=== PATIENT | female | born 1980 | race Caucasian/White ===

== ENCOUNTER 2018-06-27 13:34 | Emergency (ER) | payer SELFPAY ==
--- NOTE | 2018-06-27 18:25 | RAD REPORT ---
EXAM DESCRIPTION: CT - Head Brain Wo Cont - 06/27/2018 6:18 pm CLINICAL HISTORY: DIZZINESS Headache, drowsiness. COMPARISON: HEAD BRAIN W O CONTRAST dated 01/14/2014 TECHNIQUE: All CT scans are performed using dose optimization technique as appropriate and may inclu de automated exposure control or mA/KV adjustment according to patient size. FINDINGS: No intracranial hemorrhage, hydrocephalus or extra-axial fluid collection.No areas of brai n edema or evidence of midline shift. The paranasal sinuses and mastoids are clear. The calvarium is intact. IMPRESSION: No acute intracranial abnormality.
--- NOTE | 2018-06-27 18:32 | RAD REPORT ---
EXAM DESCRIPTION: RAD - Chest Single View - 06/27/2018 6:28 pm CLINICAL HISTORY: CHEST PAIN Chest pain. COMPARISON: Chest Single View dated 10/26/2015 FINDINGS: Portable technique limits examination quality. The lungs are grossly clear. The heart is normal in size. No displaced fractures. IMPRESSION: No acute intrathoracic process suspected.
[2018-06-27 20:00] LABS: Absolute Lymphocytes (CBC) 3.1 K/uL (0.7-4.9); Absolute Monocytes 0.8 K/uL (0.1-1.3); Absolute Neutrophil 7.1 K/uL (1.8-8.0); Basophils % 0.3 % (0-1.3); Eosinophils % 1.1 % (0-4.4); Hematocrit 37.9 % (36.0-45.0); Lymphocytes % 27.7 % (15.3-44.8); MPV 9.8 fL (7.6-11.3); Monocytes % 6.9 % (3.3-12.3); RBC Red Blood Cell Count 4.16 M/uL (3.86-4.86)
[2018-06-27 20:13] LABS: ALT/SGPT 17 U/L (12-78); AST/SGOT 8 U/L (15-37); Albumin 4.2 g/dL (3.4-5.0); Alkaline Phosphatase 58 U/L (45-117); BUN Blood Urea Nitrogen 14 mg/dL (7-18); Bicarbonate 26 mmol/L (21-32); Bilirubin Direct 0.1 mg/dL (0-0.2); Bilirubin Total 0.5 mg/dL (0.2-1.0); Glucose Level 80 mg/dL (74-106); Magnesium 2.1 mg/dL (1.8-2.4); NT PRO-BNP 56 pg/mL (<125); Potassium 3.4 mmol/L (3.5-5.1); Protime INR 1.07; Sodium Level 138 mmol/L (136-145); Troponin (Emerg Dept Use Only) < 0.02 ng/mL (0.0-0.045)
[2018-06-27 20:36] LABS: Urine Blood NEGATIVE (NEG); Urine Glucose NEGATIVE (NEG); Urine Protein NEGATIVE (NEG); Urine Specific Gravity 1.025 (1.005-1.030)
[2018-06-27] MEDS ORDERED: ONDANSETRON 4 MG/2 ML VIAL ONE (21:03)
[2018-06-27] MEDS ORDERED: KETOROLAC 30 MG/ML INJ ONE (21:03)
--- NOTE | 2018-06-27 21:34 | ER ---
Nurse's Notes [facility] Name: Bonita Hernandez Age: 38 yrs Sex: Female : 1980 Arrival Date: 06/27/2018 Time: 13:37 Bed 17 Private MD: Diagnosis: Chest pain, unspecified Presentation: 06/27 15:16 Presenting complaint: Patient states: Palpitations, L rib pain, headache behind yvrose ph eyes, dizziness, and nausea, reports that symptoms began at approx 0800. Transition of care: patient was not received from another setting of care. Onset of symptoms was June 27, 2018. Risk Assessment: Do you want to hurt yourself or someone else? Patient reports no desire to harm self or others. Initial Sepsis Screen: Does the patient meet any 2 criteria? No. Patient's initial sepsis screen is negative. Care prior to arrival: None. 15:16 Method Of Arrival: Ambulatory ph 15:16 Acuity: KIRSTEN 3 ph Historical: - Allergies: 15:19 PENICILLINS; ph - PSHx: 15:19 Left Ankle; Tubal ligation; ; Cholecystectomy; ph Screenin:01 Abuse screen: Denies threats or abuse. Denies injuries from another. Nutritional aj1 screening: No deficits noted. Tuberculosis screening: No symptoms or risk factors identified. Assessment: 17:01 General: Appears in no apparent distress. uncomfortable, Behavior is calm, cooperative, aj1 appropriate for age. Pain: Complains of pain in right lateral anterior chest Pain does not radiate. Pain currently is 6 out of 10 on a pain scale. Pain: Aggravated by deep breathing and leaning forward. Neuro: Level of Consciousness is awake, alert, obeys commands, Oriented to person, place, time, situation, Moves all extremities. Full function Gait is steady, Speech is normal, Facial symmetry appears normal, Reports dizziness, headache. Cardiovascular: Heart tones S1 S2 present Patient's skin is warm and dry. Rhythm is sinus rhythm. Cardiovascular: Reports palpitations. Respiratory: Airway is patent Respiratory effort is even, unlabored, Respiratory pattern is regular, symmetrical, Breath sounds are clear bilaterally. Denies cough, shortness of breath. GI: Reports nausea. : No signs and/or symptoms were reported regarding the genitourinary system. EENT: No signs and/or symptoms were reported regarding the EENT system. Derm: No signs and/or symptoms reported regarding the dermatologic system. Skin is pink, warm \T\ dry. normal. Musculoskeletal: No signs and/or symptoms reported regarding the musculoskeletal system. Circulation, motion, and sensation intact. 18:15 Reassessment: Patient appears in no apparent distress at this time. No changes from aj1 previously documented assessment. Patient and/or family updated on plan of care and expected duration. Pain level reassessed. Patient is alert, oriented x 3, equal unlabored respirations, skin warm/dry/pink. 19:15 Reassessment: Patient appears in no apparent distress at this time. Patient and/or jb4 family updated on plan of care and expected duration. Pain level reassessed. Patient is alert, oriented x 3, equal unlabored respirations, skin warm/dry/pink. 20:15 Reassessment: Patient appears in no apparent distress at this time. Patient and/or jb4 family updated on plan of care and expected duration. Pain level reassessed. Patient is alert, oriented x 3, equal unlabored respirations, skin warm/dry/pink. 21:15 Reassessment: Patient appears in no apparent distress at this time. Patient and/or jb4 family updated on plan of care and expected duration. Pain level reassessed. Patient is alert, oriented x 3, equal unlabored respirations, skin warm/dry/pink. 21:57 Reassessment: Patient appears in no apparent distress at this time. Patient and/or jb4 family updated on plan of care and expected duration. Pain level reassessed. Patient is alert, oriented x 3, equal unlabored respirations, skin warm/dry/pink. Vital Signs: 15:18 BP 130 / 72; Pulse 72; Resp 16; Temp 98.0; Pulse Ox 100% on R/A; Height 5 ft. 6 in. ph (167.64 cm); 17:01 BP 137 / 61; Pulse 69; Resp 14; Pulse Ox 99% on R/A; aj1 18:15 BP 136 / 72; Pulse 62; Resp 18; Pulse Ox 97% on R/A; aj1 19:15 BP 140 / 78; Pulse 65; Resp 16; Pulse Ox 97% on R/A; jb4 20:15 BP 125 / 72; Pulse 65; Resp 18; Pulse Ox 96% on R/A; jb4 21:15 BP 133 / 75; Pulse 66; Resp 18; Pulse Ox 97% on R/A; jb4 21:45 BP 122 / 63; Pulse 63; Resp 16; Pulse Ox 97% on R/A; jb4 ED Course: 13:37 Patient arrived in ED. tw3 15:18 Triage completed. ph 15:19 Arm band placed on. ph 15:23 EKG done, by endoscopy technican. reviewed by Noe Marroquin MD. 3 16:52 Ashely Shelley, RN is Primary Nurse. aj1 17:01 Patient has correct armband on for positive identification. Bed in low position. Call aj1 light in reach. Side rails up X 1. monitor worker on. Pulse ox on. NIBP on. 17:01 No provider procedures requiring assistance completed. aj1 17:47 Prince Parker PA is PHCP. jmm 17:47 Noe Marroquin MD is Attending Physician. jmm 18:[address] jg6 18:17 CT completed. Patient tolerated procedure well. Patient moved back from CT. vm2 18:19 CT Head Brain wo Cont In Process Unspecified. EDMS 18:27 XRAY Chest (1 view) In Process Unspecified. EDMS 19:05 Troponin (emerg Dept Use Only) Sent. mh5 19:05 Basic Metabolic Panel Sent. mh5 19:06 CBC with Diff Sent. mh5 19:06 LFT's Sent. mh5 19:06 Magnesium Sent. mh5 19:06 NT PRO-BNP Sent. mh5 19:06 PT-INR Sent. mh5 19:06 Missed attempt(s): 22 gauge in right antecubital area. 24 gauge in right hand. mh5 19:07 Warm blanket given. monitor worker on. Pulse ox on. NIBP on. mh5 19:30 Inserted saline lock: 22 gauge in left wrist, using aseptic technique. Blood collected. jp3 21:33 Hugo Lopez MD is Referral Physician. jmm 21:33 Alex Carvajal MD is Referral Physician. jmm 21:45 IV discontinued, intact, bleeding controlled. jb4 Administered Medications: 21:10 Drug: Zofran 4 mg Route: IVP; Site: left hand; jb4 21:59 Follow up: Response: No adverse reaction; Nausea is decreased jb4 21:12 Drug: Ketorolac 30 mg Route: IVP; Site: left hand; jb4 22:00 Follow up: Response: No adverse reaction; Pain is decreased jb4 Outcome: 21:34 Discharge ordered by . jai 21:59 Discharged to home ambulatory. jb4 21:59 Condition: stable 21:59 Discharge instructions given to patient, Instructed on discharge instructions, follow up and referral plans. medication usage, Demonstrated understanding of instructions, follow-up care, medications, Prescriptions given X 2. 22:01 Patient left the ED. jb4 Signatures: Dispatcher [employer] EDMS Ashely Shelley, RN RN aj1 Prince Parker PA PA jmm Hall, Patricia, RN RN Henrry Yen RN RN jb4 Krista Dow 5 Michelle Hope3 Odessa Unger2 Janay Dominguez 3 Burt Sue jp3 Diana Epps6
--- NOTE | 2018-06-27 21:34 | EDPHYS ---
Physician Documentation [facility] Name: Bonita Hernandez Age: 38 yrs Sex: Female : 1980 Arrival Date: 06/27/2018 Time: 13:37 Bed 17 Private MD: ED Physician Noe Marroquin HPI: 06/27 17:48 This 38 yrs old Female presents to ER via Ambulatory with complaints of m Dizziness, Headache, Nausea. 17:48 The patient or guardian reports chest pain that is located primarily in the anterior [facility] chest wall, left. The pain does not radiate. Associated signs and symptoms: Pertinent positives: lightheadedness, palpitations. The chest pain is described as aching. Duration: The patient or guardian reports a single episode, that is still ongoing, and unchanged. This is a 38 year old female with no chronic medical conditions that presents to the ED with complaints of left sided chest pain beginning this morning at approx 0800. Patient states symptoms began with an episode of palpitations which has since resolved. Patient states approx 1 hour later she developed a bilateral retro orbital headache which was gradual onset which continues. Patient smokes tobacco and admits to recently smoking marijuana recreational 3 days prior. Chest pain is non exertional. patient denies shortness of breath. Patient also complains of lightheartedness and general weakness. Patient denies cough or fever. . Historical: - Allergies: 15:19 PENICILLINS; ph - PSHx: 15:19 Left Ankle; Tubal ligation; ; Cholecystectomy; ph ROS: 17:48 Constitutional: Negative for fever, chills, and weight loss. jmm 17:48 Cardiovascular: Positive for chest pain, palpitations. 17:48 Abdomen/GI: Positive for nausea. 17:48 Neuro: Positive for headache. 17:48 All other systems are negative. Exam: 17:48 Constitutional: This is a well developed, well nourished patient who is awake, alert, jmm and in no acute distress. Head/Face: atraumatic. Eyes: EOMI, no conjunctival erythema appreciated ENT: Moist Mucus Membranes Neck: Trachea midline, Supple Chest/axilla: Normal chest wall appearance and motion. 17:48 Chest/axilla: Inspection: normal, Palpation: tenderness, is not appreciated. 17:48 Cardiovascular: Rate: normal, Rhythm: regular. 17:48 Respiratory: the patient does not display signs of respiratory distress, Respirations: normal, Breath sounds: are clear throughout. 17:48 Abdomen/GI: Inspection: abdomen appears normal, Bowel sounds: normal, Palpation: abdomen is soft and non-tender. 17:48 Back: ROM is normal. 17:48 Musculoskeletal/extremity: ROM: intact in all extremities. 17:48 Skin: Appearance: Color: normal in color. 17:48 Neuro: Orientation: is normal, Mentation: is normal, Memory: is normal. 17:48 Psych: Behavior/mood is pleasant, cooperative. Vital Signs: 15:18 BP 130 / 72; Pulse 72; Resp 16; Temp 98.0; Pulse Ox 100% on R/A; Height 5 ft. 6 in. ph (167.64 cm); 17:01 BP 137 / 61; Pulse 69; Resp 14; Pulse Ox 99% on R/A; aj1 18:15 BP 136 / 72; Pulse 62; Resp 18; Pulse Ox 97% on R/A; aj1 19:15 BP 140 / 78; Pulse 65; Resp 16; Pulse Ox 97% on R/A; jb4 20:15 BP 125 / 72; Pulse 65; Resp 18; Pulse Ox 96% on R/A; jb4 21:15 BP 133 / 75; Pulse 66; Resp 18; Pulse Ox 97% on R/A; jb4 21:45 BP 122 / 63; Pulse 63; Resp 16; Pulse Ox 97% on R/A; jb4 MDM: 17:[address] [facility] 21:30 Data reviewed: vital signs, nurses notes. Counseling: I had a detailed discussion with jai the patient and/or guardian regarding: the historical points, exam findings, and any diagnostic results supporting the discharge/admit diagnosis, the need for outpatient follow up, to return to the emergency department if symptoms worsen or persist or if there are any questions or concerns that arise at home. 21:31 Data reviewed: lab test result(s), EKG, radiologic studies, plain films. Counseling: I jai had a detailed discussion with the patient and/or guardian regarding: lab results, radiology results, smoking cessation. 21:42 Data interpreted: Pulse oximetry: on room air is 97 %. Interpretation: normal. jai 21:42 Test interpretation: by ED physician or midlevel provider: ECG. Response to treatment: donavon the patient's symptoms have markedly improved after treatment, and as a result, I will discharge patient. ED course: PERC NEGATIVE. HEART SCORE = 1. Patient is advised to follow up with cardiology for further evaluation. Patient is given strict return precautions. Patient understood and agrees with the plan of care. . 06/27 18:09 Order name: Basic Metabolic Panel; Complete Time: 20:14 [facility] 06/27 18:09 Order name: CBC with Diff; Complete Time: 20:14 [facility] 06/27 18:09 Order name: LFT's; Complete Time: 20:14 [facility] 06/27 18:09 Order name: Magnesium; Complete Time: 20:14 [facility] 06/27 18:09 Order name: NT PRO-BNP; Complete Time: 20:14 [facility] 06/27 18:09 Order name: PT-INR; Complete Time: 20:39 [facility] 06/27 16:38 Order name: EKG Electrocardiogram; Complete Time: 16:53 [facility] 06/27 18:09 Order name: Troponin (emerg Dept Use Only); Complete Time: 20:14 [facility] 06/27 18:09 Order name: XRAY Chest (1 view); Complete Time: 18:35 [facility] 06/27 18:09 Order name: CT Head Brain wo Cont; Complete Time: 18:35 [facility] 06/27 19:06 Order name: Urine Dipstick--Ancillary (enter results); Complete Time: 20:39 06/27 19:06 Order name: Urine --Ancillary (enter results); Complete Time: 20:39 06/27 18:09 Order name: EKG; Complete Time: 18:10 [facility] 06/27 18:09 Order name: Cardiac monitoring; Complete Time: 18:10 [facility] 06/27 18:09 Order name: EKG - Nurse/Tech; Complete Time: 18:10 [facility] 06/27 18:09 Order name: IV Saline Lock; Complete Time: 20:00 [facility] 06/27 18:09 Order name: Labs collected and sent; Complete Time: 19:05 [facility] 06/27 18:09 Order name: O2 Per Protocol; Complete Time: 18:10 [facility] 06/27 18:09 Order name: O2 Sat Monitoring; Complete Time: 18:10 [facility] 06/27 20:40 Order name: EKG - Nurse/Tech; Complete Time: 21:24 [facility] Administered Medications: 21:10 Drug: Zofran 4 mg Route: IVP; Site: left hand; jb4 21:59 Follow up: Response: No adverse reaction; Nausea is decreased jb4 21:12 Drug: Ketorolac 30 mg Route: IVP; Site: left hand; jb4 22:00 Follow up: Response: No adverse reaction; Pain is decreased jb4 Disposition: 06/28 09:20 Co-signature as Attending Physician, Noe Marroquin MD I agree with the assessment and fina plan of care. Disposition: 06/27/18 21:34 Discharged to Home. Impression: Chest pain, unspecified. - Condition is Stable. - Discharge Instructions: Nonspecific Chest Pain. - Prescriptions for Zofran ODT 4 mg Oral tablet,disintegrating - place 1 tablet by TRANSLINGUAL route every 4-6 hours; 20 tablet. Ibuprofen 800 mg Oral Tablet - take 1 tablet by ORAL route every 8 hours As needed take with food; 30 tablet. - Work release form, Medication Reconciliation Form, Thank You Letter, Antibiotic Education, Prescription Opioid Use form. - Follow up: Hugo Lopez MD; When: 2 - 3 days; Reason: Recheck today's complaints, Continuance of care, Re-evaluation by your physician. Follow up: Alex Carvajal MD; When: 2 - 3 days; Reason: Recheck today's complaints, Continuance of care, Re-evaluation by your physician. Signatures: Dispatcher [employer] Noe Glasgow MD MD cha Mickail, Joel, PA PA jmm Hall, Patricia, RN RN Henrry Prasad RN RN jb4 Corrections: (The following items were deleted from the chart) 06/27 22:01 21:34 06/27/2018 21:34 Discharged to Home. Impression: Chest pain, unspecified. jb4 Condition is Stable. Forms are Medication Reconciliation Form, Thank You Letter, Antibiotic Education, Prescription Opioid Use. Follow up: Hugo Lopez; When: 2 - 3 days; Reason: Recheck today's complaints, Continuance of care, Re-evaluation by your physician. Follow up: Alex Carvajal; When: 2 - 3 days; Reason: Recheck today's complaints, Continuance of care, Re-evaluation by your physician. jmm
--- NOTE | 2018-06-28 05:28 | EKG ---
Test Date: 2018-06-27 Test Time: 15:18:32 Childcare Provider: NASIM MEASUREMENT RESULTS: Intervals: Rate: 73 MA: 136 QRSD: 86 QT: 394 QTc: 434 [place]: P: 67 MA: 136 QRS: 82 T: 20 INTERPRETIVE STATEMENTS: Normal sinus rhythm with sinus arrhythmia Nonspecific ST abnormality Abnormal ECG Compared to ECG 10/26/2015 12:26:00 ST (T wave) deviation now present Electronically Signed On 06-28-18 05:27:30 CDT by Alex Carvajal
--- NOTE | 2018-06-28 05:32 | EKG ---
Test Date: 2018-06-27 Test Time: 20:57:47 Archeology Faculty Member: DOLORES MEASUREMENT RESULTS: Intervals: Rate: 64 WV: 150 QRSD: 96 QT: 400 QTc: 412 [place]: P: 43 WV: 150 QRS: 51 T: 14 INTERPRETIVE STATEMENTS: Normal sinus rhythm with sinus arrhythmia Normal ECG Compared to ECG 06/27/2018 15:18:32 ST (T wave) deviation no longer present Electronically Signed On 06-28-18 05:31:19 CDT by Alex Carvajal
== END 2018-06-27 22:01 | disposition home or self-care (01) ==
LOC: ER 13:34
DX: R07.9 Chest pain, unspecified (principal); Z72.0 Tobacco use; Z88.0 Allergy status to penicillin
CPT/HCPCS: 36415; 70450; 71045; 80048; 80076; 81003; 81025; 83735; 83880; 84484; 85025; 85610; 93005; 96374; 96375; 99285; J2405

== ENCOUNTER 2024-02-24 18:31 | Emergency (ER) | payer SELFPAY ==
--- OUTSIDE RECORDS SUMMARY | 2024-02-24 18:36 | XMS REPORT | Continuity of Care Document ---
Author Name Unknown Address [address] [facility]. [address] [place] [address] [facility] thconnect Address [address] [facility] [address] [place] [address] Care Team Providers Care Fatback Trimmer Name Role Phone Pcp, Patient Does Not Have A Primary Care Physic michael José Miguel Mak Attending Clinician Hi Anne Attending Clinician Unavailable Topher Navarrete MD Attending Clinician Physician, No Primary or Family Admitting Clinic michael Unavailable Payers Payer Name Policy Type Policy Number Effective Date Expirati on Date Source Problems Condition Name Condition Details Condition Category Status Onset Date Resolution Date Last Treatment Date Treating Clinician Comments Source No known active problems No known active problems Disease [facility] Allergies, Adverse Reactions, Alerts Allergy Name Allergy Type Status Severity Reaction(s) Onset Date Inactive Date Treating Clinician Comments Source Nereida Propensi ty to adverse reaction s Active Anaphylaxis 16 00:00: 00 [facility] Penicill ins Propensi ty to adverse reaction s Active Anaphylaxis 10-29 00:00: 00 [facility] Poison Anabella Extract Propensi ty to adverse reaction s Active Anaphylaxis 10-29 00:00: 00 [facility] PENICILL INS Drug Class Active Anaphylaxis 10-29 00:00: 00 [facility] NEREIDA DRUG INGREDI Active Anaphylaxis 10-29 00:00: 00 [facility] POISON ANABELLA EXTRACT DRUG INGREDI Active Anaphylaxis 10-29 00:00: 00 [facility] NO KNOWN ALLERGIE S Drug Class Active [facility] Social History Social Habit Start Date Stop Date Quantity Comments Source Exposure to SARS-CoV-2 (event) Not sure [facility] Sex Assigned At 1980 00:00:00 1980 00:00:00 [facility] Smoking Status Start Date Stop Date Source Unknown if ever smoked [facility] Medications Ordered Medication Name Filled Medication Name Start Date Stop Date Current Medication? Ordering Clinician Indication Dosage Frequency Signature (SIG) Comments Components Source acetaminoph en-codeine 300-30 mg tablet 2020-04 00:00: 00 Yes 4647 1{tbl} Take 1 tablet by mouth every 4 (four) hours as needed for Pain (scale 4-6). Indication s: acute pain [facility] ondansetron (ZOFRAN-ODT ) disintegrat ing tablet 4 mg 10-29 20:00: 00 10-29 19:58 :00 No 4mg 4 mg, Oral, ONCE, 1 dose, Arcelia 10/30/19 at 1500, Routine [facility] HYDROcodone -acetaminop hen (NORCO 5) 5-325 mg tablet 1 tablet 10-29 20:00: 00 10-29 19:37 :00 No 1{tbl} 1 tablet, Oral, ONCE, 1 dose, Arcelia 10/30/19 at 1500, SAVAGE [facility] ibuprofen 600 mg tablet 10-29 00:00: 00 Yes [id number] 600mg Take 1 tablet by mouth every 6 (six) hours as needed for Pain (scale 4-6). [facility] methocarbam ol 750 mg tablet 10-29 00:00: 00 Yes [id number] 750mg Take 1 tablet by mouth 4 (four) times daily. [facility] acetaminoph en-codeine 300-30 mg tablet 10-29 00:00: 00 Yes 4647 1{tbl} Take 1-2 tablets by mouth every 6 (six) hours as needed for Pain (scale 4-6). Indication s: acute pain [facility] Vital Signs Vital Name Observation Time Observation Value Comments S ource Systolic blood pressure 2021-01-24 17:55:00 150 mm[Hg] [facility] Diastolic blood pressure 2021-01-24 17:55:00 78 mm[Hg] [facility] Heart rate 2021-01-24 17:55:00 80 /min [facility] Body temperature 2021-01-24 17:55:[address] [facility] Respiratory rate 2021-01-24 17:55:00 16 /min [facility] Body height 2021-01-24 17:55:00 170 cm [facility] Body weight 2021-01-24 17:55:00 105 kg [facility] BMI 2021-01-24 17:55:00 36.33 kg/m2 [facility] Oxygen saturation in Arterial blood by Pulse oximetry 2021-01-24 17:55:00 99 /min [facility] Systolic blood pressure 2019-10-30 20:00:00 135 mm[Hg] [facility] Diastolic blood pressure 2019-10-30 20:00:00 106 mm[Hg] [facility] Heart rate 2019-10-30 20:00:00 73 /min [facility] Respiratory rate 2019-10-30 20:00:00 19 /min [facility] Oxygen saturation in Arterial blood by Pulse oximetry 2019-10-30 20:00:00 98 /min [facility] Body temperature 2019-10-30 18:18:[address] [facility] Body weight 2019-10-30 18:18:00 127.007 kg [facility] Procedures Procedure Date / Time Performed Performing Clinicia n Source NOTICE OF PRIVACY PRACTICES 2021-01-24 17:46:12 Doctor Unassigned, [place] [facility] CONSENT/REFUSAL FOR DIAGNOSIS AND TREATMENT 2021-01-24 17:45:23 Doctor Unassigned, [place] [facility] URINALYSIS 2019-10-30 19:40:00 [facility] 3 VW 2019-10-30 19:16:[address] [facility] XR HIPS 2 VW RIGHT 2019-10-30 19:16:[address] [facility] POCT TEST 2019-10-30 19:06:[address] [facility] NOTICE OF PRIVACY PRACTICES 2019-10-30 17:59:35 Doctor Unassigned, [place] [facility] CONSENT/REFUSAL FOR DIAGNOSIS AND TREATMENT 2019-10-30 17:59:18 Doctor Unassigned, [place] [facility] Encounters Start Date/Time End Date/Time Encounter Type Admission Type Attending [facility] Facility Care Department Encounter ID Source 2022-07-04 14:23:42 2022-07-04 14:23:42 Outpatient [facility] [id number] Douglas Cira Sharma 2021-01-24 13:00:00 2021-01-24 14:16:00 Emergency José Miguel Jordan [facility] [id number] [facility] 2021-01-24 12:45:00 2021-01-24 12:45:00 Emergency X [facility] ERT [id number] [facility] 2021-01-23 04:15:00 2021-01-23 05:26:00 Inpatient EM Hi Anne [facility] EO2 [id number] 65 [facility] [place] 2019-10-30 13:20:08 2019-10-30 18:00:00 Emergency Topher Navarrete [facility] [id number] [facility] 2019-10-30 13:00:00 2019-10-30 13:00:00 Emergency X [facility] ERT [id number] [facility] Results Test Description Test Time Test Comments Results Resul t Comments Source - XR WRIST 3 + V LT 2021-01-23 04:47:00 [facility] 1980 Sex: F Jeffery tient Name: JAZMIN PARSONS Unit No: [id number] EXAMS: CPT: [id number] XR WRIST 3 + [place] [address] LEFT WRIST 3 VIEWS: CLINICAL HISTORY: Injury FINDINGS: There is a nondisplaced fracture of the distal radial metaphysis, which appears to extend to the articular surface. Alignment appears anatomic. No joint or soft tissue abnormalities are seen. IMPRESSION: Nondisplaced distal radial fracture. at 0447 Reported and signed by: Augusto Barboza MD CC: Hi Anne MD Technologist: Swapnil Minor Trscr Dt/Tm: 01/23/2021 (0447) by:[email or web address] Orig Print D/T: S: 01/23/2021 (0450) BATCH NO: N/A Name: JAZMIN PARSONS FSED Phys: [email or web address] - Hi Anne MD [id number] FM [id number] : 1980 Age: 40 Sex: [place] [id number] [facility] Date: 01/23/2021 Status: PRE ER PH: FAX: PAGE [address] [facility] VW [id number] 19:27:44HISTORY: ?Pain. FINDINGS: AP and lateral views of right hip showed no acute fracture ordislocation.No significant changes of arthritis or aggressive bone lesionsseen. No signs of AVN in the femoral head. CONCLUSIONS: No acute fracture or dislocation in the right hip. [facility], [facility] Results Inft User - 10/30/2019 2:28 PM CDTHISTORY: Pain.FINDINGS: AP and lateral views of right hip showed no acute fracture ordislocation. No significant changes of arthritis or aggressive bone lesionsseen. No signsof AVN in the femoral head.CONCLUSIONS: No acute fracture or dislocation in the right hip[facility] L[facility] 3 [id number] 19:21:471. ?No acute osseous findings are seen.2. ?Minimal degenerative changes of the lumbar spine.HISTORY:back pain TECHNIQUE: Frontal and lateral views of the lumbar spine were obtained. COMPARISON: None. FINDINGS: There are 5 lumbar type vertebra. There is normal lumbar lordosisand sagittal alignment. The vertebral body heights are preserved. Multilevel degenerative changes are noted in the form of disc spacenarrowing, anterior osteophytes and facet arthropathy. Minimal degenerativechanges are seenin the form of marginal osteophytes. [facility], [facility] Results [facility] User - 10/30/2019 2:22 PM CDTHISTORY:back pain TECHNIQUE: Frontal and lateral views of the lumbar spine were obtained. COMPARISON: None.FINDINGS: There are 5 lumbar type vertebra. There is normal lumbar lordosisand sagittal alignment. The vertebral body heights are preserved.Multilevel degenerative changes are noted in the form of disc spacenarrowing, anterior osteophytes and facet arthropathy. Minimal degenerativechanges are seen in the form of marginal osteophytes.IMPRESSION1. No acute osseous findings are seen.2. Minimal degenerative changes of the lumbar spine.[facility] [id number] 19:06:00* Test Item Value Reference Range Interpretation Comme nts POCT PREG (test code = 1605) negative On board controls acceptable with C Line (test code = 3574) positive POCT PREG LOT # (test code = 3575) [id number] POCT PREG TEST DATE ( test code = 3576) 11-13-2020 Lab Interpretation (test cod e = 60051-1) Normal [facility] Notes Date/Time Note Provider Source 2021-01-23 04:28:00 [facility] (COCYENI) EMERGENCY PROVIDER REPORT REPORT#:[id number] REPORT STATUS: Signed DATE:01/23/21 TIME: 427 PATIENT: JAZMIN PARSONS UNIT #: [id number] ROOM: BED: AGE: 40 SEX: F PCP PHYS: No Primary or Family Physician SERVICE AUTHOR: Hi Anne MD * ALL edits or amendments must be made on the electronic/computer document * HPI-General Illness Free Text HPI Notes Free Text HPI Notes Wrist pain Location left Duration constant severity moderate Context fell backwards onto bilateral outstretched palms 32-year-old female presents to the EMS apply splint to her left distal wrist for pain swelling and deformity after mechanical fall Positive alcohol Negative loss consciousness General Initial Greet Date/Time 01/23/21416 Presentation Chief Complaint __ (left wrist pain) Review of Systems Free Text ROS Notes Free Text ROS Notes See HPI, 10 point review of systems otherwise negative Past Medical History - Adult Stated Complaint INJURY TO LEFT WRIST Physical Exam Vital Signs Vital Signs First Documented: Result Date Time Pulse Ox 95 01/23 042 B/P 145/74 01/23 0420 B/P Mean 97.7 01/24 420 Temp 97.5 01/24 420 Pulse 111 01/24 420 Resp 16 01/230 O2 Delivery Room air 01/23 514 Last Documented: Result Date Time Pulse Ox 96 01/23 514 B/P 138/77 01/23 514 B/P Mean 97 01/23 514 O2 Delivery Room air 01/23 514 Temp 98.3 01/23 514 Pulse 91 01/23 514 Resp 15 01/23 514 Review of Vital Signs Reviewed Free Text PE Notes Free Text PE Notes CONSTITUTIONAL: Well developed, well nourished. No acute distress. HEAD: Scalp is atraumatic. Normocephalic. EYES: PERRL. EOMI. injected conjunctivae bilaterally ENT: Moist mucus membranes. NECK: Full ROM. No Stridor. RESPIRATORY/CHEST: No respiratory distress. No tachypnea. EXTREMITIES: No C/C/E. Soft lump at the dorsal left wrist. Patient is jumpy but I was allowed to palpate along the entire aspect of the radius and ulna as well as long bones of the finger. No pain with axial loading of the thumb. FROM in all extremities. No calf tenderness. SKIN: Warm, dry intact. No petechiae, purpura, rashes. NEURO: AAO x 3 and situation. Normal speech. PSYCH: Limited eye contact. Labile emotions. Interpretation Diagnostics Lab Results Interpretation Results Recent Impressions: RADIOLOGY - XR WRIST 3 + V LT 01/23 442 Report Impression - Status: SIGNED Entered: 01/23/2021449 IMPRESSION: Nondisplaced distal radial fracture. Impression By: [email or web address] - Augusto Barboza MD Procedures Splint Applic - Fx Mgmt #1 Start Time 0430 Time Spent (minutes) 20 Procedure Performed by ED physician Precise Anatomic Location Left sugar tong Due to not Ortho-Glass greater than 3 feet use 2 rolls of 3 inch wide weight will use on the wrist and epicondyle/olecranon. 2 Shaheed wrap to use Custom Immobilization Ortho glass Definitive Fracture Care Pain control, Sling, Splint, Follow up > 4 days Re-Evaluation MDM ED Course Medication(s) Ordered Medication(s) Ordered: Central Nervous System Agents Sig/Lisa Start time Last Medication Dose Route Stop Time Status Admin Acetaminophen 1,000 MG X1ED STA 01/23 422 DC 01/23 PO 01/23 423 0433 Ibuprofen 600 MG X1ED STA 01/23 422 DC 01/23 PO 01/23 423 0434 Patient Discharge Departure Vital Signs/Condition Vital Signs First Documented: Result Date Time Pulse Ox 95 01/24 420 B/P 145/74 01/24 420 B/P Mean 97.7 01/24 420 Temp 97.5 01/24 420 Pulse 111 01/24 420 Resp 16 01/24 420 O2 Delivery Room air 01/23 514 Last Documented: Result Date Time Pulse Ox 96 01/23 514 B/P 138/77 01/23 514 B/P Mean 97 01/23 514 O2 Delivery Room air 01/23 514 Temp 98.3 01/23 514 Pulse 91 01/23 514 Resp 15 01/23 514 All vital signs available at the time of this entry have been reviewed. Clinical Impression Clinical Impression Primary Impression: Fracture of left distal radius Disposition Decision Discharge )( Discharged to Home Yes )( Time 0453 )( Date 01/23/21 Discharge/Care Plan (Auto) Prescriptions Current Visit Scripts Acetaminophen (Tylenol) 3 TAB PO Q6H PRN PAIN/ FEVER Acetaminophen (Tylenol) 3 TAB PO Q6H PRN PAIN/ FEVER #30 TABS Take according to directions on label. Ibuprofen (Advil) 600 MG PO Q6H PRN PRN pain/fever Ibuprofen (Advil) 600 MG PO Q6H PRN PRN pain/fever #32 TABS Take as directed on label. Patient Instructions ED Fracture, Wrist, General Additional Instructions In 1 week follow-up with an orthopedist to have a cast placed. Referrals Henrry Alex Jr, MD: 1 Week Discharge Note I have spoken with the patient and/or caregivers. I have explained the patient's condition, diagnoses and treatment plan based on the information available to me at this time. I have answered the patient's and/or caregiver's questions and addressed any concerns. The patient and/or caregivers have as good an understanding of the patient's diagnosis, condition and treatment plan as can be expected at this point. The vital signs have been stable. The patient's condition is stable and appropriate for discharge from the emergency department. The patient will pursue further outpatient evaluation with the primary care physician or other designated or consulting physician as outlined in the discharge instructions. The patient and/or caregivers are agreeable to this plan of care and follow-up instructions have been explained in detail. The patient and/or caregivers have received these instructions in written format and have expressed an understanding of the discharge instructions. The patient and/or caregivers are aware that any significant change in condition or worsening of symptoms should prompt an immediate return to this or the closest emergency department or a call to 911. Quality Measures BP F/U for HTN Referred for BP f/u < 4wk at 2138 RPT #:[id number] END OF REPORT [facility]
[2024-02-24] MEDS ORDERED: ONDANSETRON 4 MG/2 ML VIAL ONE (20:29)
[2024-02-24] MEDS ORDERED: KETOROLAC 30 MG/ML INJ ONE (20:30)
[2024-02-24] MEDS ORDERED: NA CHLORIDE 0.9% 1,000 ML ONE (20:30)
--- NOTE | 2024-02-24 20:50 | RAD REPORT ---
EXAMINATION: CT Stone Protocol CLINICAL INDICATION: Female, 43 years old. FLANK PAIN TECHNIQUE: CT abdomen and pelvis was performed, without IV contrast, as per department protocol. Axia l, sagittal and coronal reconstructions were obtained. One or more of the following dose reduction techniques were used: Automated exposure control, adjustment of the mA and kV according to the patien t size, and iterative reconstruction. Unless otherwise specified, incidental findings do not require dedicated imaging follow-up. COMPARISON: 02/28/2015 FINDINGS: The lack of intravenous contrast limits the sensitivity of this exam for evaluation of solid visceral organs, vascular structures, and retroperitoneum. LOWER CHEST: The visualized lung bases are clear. LIVER: Normal in size and contour. No focal lesion. BILIARY SYSTEM: Status post cholecystectomy. SPLEEN: Normal size. No focal lesion. PANCREAS: No mass, ductal dilation, or pablo-pancreatic fluid. ADRENALS: Normal; no mass. KIDNEYS AND URETERS: Normal size and contour. No hydronephrosis. URINARY BLADDER: Suboptimally distended limiting evaluation. GASTROINTESTINAL TRACT: No evidence of bowel obstruction, significant free fluid, free air or abscess . APPENDIX: Normal appendix. LYMPH NODES: No lymphadenopathy. MUSCULOSKELETAL: No acute or suspicious osseous abnormality. ADDITIONAL FINDINGS: None. IMPRESSION: No acute or concerning abnormalities in the abdomen or pelvis, with evaluation limited by lack of IV contrast.
[2024-02-24 21:03] LABS: Specific Gravity 1.024 (1.005-1.030); Urine Bilirubin NEGATIVE (Negative); Urine Blood Negative (Negative); Urine Clarity Clear (Clear); Urine Color Light-Yellow (Yellow); Urine Glucose NEGATIVE (Negative); Urine Ketones NEGATIVE (Negative); Urine Microscopic Reflex YN NO UMIC; Urine Nitrite NEGATIVE (Negative); Urine Protein NEGATIVE (Negative); Urine Urobilinogen Normal (Normal)
[2024-02-24 21:07] LABS: Specific Gravity 1.024 (1.005-1.030)
[2024-02-24 21:08] LABS: Absolute Basophils 0.1 K/uL (0-0.5); Absolute Eosinophils 0.1 K/uL (0-0.5); Absolute Lymphocytes (CBC) 2.8 K/uL (0.7-4.9); Absolute Monocytes 0.6 K/uL (0.1-1.3); Absolute Neutrophil 6.1 K/uL (1.8-8.0); Basophils % 0.8 % (0-1.3); Eosinophils % 1.3 % (0-4.4); Hematocrit 36.9 % (36.0-45.0); Hemoglobin 12.9 g/dL (12.0-15.0); Lymphocytes % 28.8 % (15.3-44.8); MCH 32.1 pg (27.0-35.0); MCHC 34.9 g/dL (32.0-36.0); MPV 8.8 fL (7.6-11.3); Monocytes % 6.4 % (3.3-12.3); Neutrophils % 62.7 % (41.7-73.7); Platelets 251 thou/uL (152-406); RBC Red Blood Cell Count 4.01 M/uL (3.86-4.86); Red Cell Distribution Width 12.6 % (12.1-15.2)
[2024-02-24 21:20] LABS: Albumin 3.9 g/dL (3.4-5.0); Albumin/Globulin Ratio 1.2 (1.1-1.8); Anion Gap 7.5 mEq/L (5.0-15.0); Bilirubin Total 0.5 mg/dL (0.2-1.0); Globulin 3.2 g/dL (2.3-3.5); Potassium 3.5 mEq/L (3.5-5.1); Protein, Total 7.1 g/dL (6.4-8.2)
--- NOTE | 2024-02-24 21:32 | ER ---
Nurse's Notes [facility] Name: Bonita Hernandez Age: 43 yrs Sex: Female : 1980 Arrival Date: 02/24/2024 Time: 18:31 Bed 10 Private MD: Diagnosis: Strain of muscle and tendon of unspecified wall of thorax, initial encounter Presentation: 02/23 18:50 Chief complaint: Patient states: Right flank pain that radiates to RLQ abdomen onset cm10 yesterday. Pt reports nausea. Pt denies any urinary symptoms. Coronavirus screen: Client denies travel out of the [place] in the last 14 days. Ebola Screen: Patient denies travel to an Ebola-affected area in the 21 days before illness onset. No symptoms or risks identified at this time. Initial Sepsis Screen: Does the patient meet any 2 criteria? No. Patient's initial sepsis screen is negative. Does the patient have a suspected source of infection? No. Patient's initial sepsis screen is negative. Risk Assessment: Do you want to hurt yourself or someone else? Patient reports no desire to harm self or others. Onset of symptoms was February 24, 2024. 18:50 Method Of Arrival: Ambulatory cm10 18:50 Acuity: KIRSTEN 3 cm10 Triage Assessment: 18:52 General: Appears in no apparent distress. uncomfortable, Behavior is calm, cooperative. cm10 Pain: Complains of pain in right flank Pain radiates to right lower quadrant Pain currently is 7 out of 10 on a pain scale. Quality of pain is described as sharp, Pain began 1 day ago. Neuro: No deficits noted. Level of Consciousness is awake, alert, obeys commands, Oriented to person, place, time, situation, Appropriate for age. Respiratory: No deficits noted. Airway is patent Respiratory effort is even, unlabored, Respiratory pattern is regular, symmetrical. SUPERVISOR PHOSPHORIC ACID: 18:53 LMP 02/10/2024, unknown cm10 Historical: - Allergies: 18:51 PENICILLINS; cm10 - Home Meds: 18:51 None [Active]; cm10 - PMHx: 18:51 None; cm10 - PSHx: 18:51 Ligation of fallopian tube; Cholecystectomy; cm10 - Immunization history:: Adult Immunizations up to date. - Infectious Disease History:: Denies. - Social history:: Smoking status: Patient reports the use of cigarette tobacco products, smokes one-half pack cigarettes per day. Screenin:08 [facility] ED Fall Risk Assessment (Adult) History of falling in the last 3 months, tl4 including since admission No falls in past 3 months (0 pts) Confusion or Disorientation No (0 pts) Intoxicated or Sedated No (0 pts) Impaired Gait No (0 pts) Mobility Assist Device Used No (0 pt) Altered Elimination No (0 pt) Score/Fall Risk Level 0 - 2 = Low Risk Oriented to surroundings, Maintained a safe environment, Educated pt \T\ family on fall prevention, incl call for assistance when getting out of bed, Assessed \T\ reinforced patient's understanding of fall precautions. Abuse screen: Denies threats or abuse. Denies injuries from another. Nutritional screening: No deficits noted. Tuberculosis screening: No symptoms or risk factors identified. Assessment: 21:06 General: Appears in no apparent distress. Behavior is calm, cooperative. Pain: tl4 Complains of pain in abdomen and right flank. Neuro: Level of Consciousness is awake, alert, obeys commands, Oriented to person, place, time, situation. Cardiovascular: Capillary refill < 3 seconds Patient's skin is warm and dry. Respiratory: Airway is patent Respiratory effort is even, unlabored, Respiratory pattern is regular, symmetrical. GI: Reports lower abdominal pain, upper abdominal pain, Patient currently denies diarrhea, nausea, vomiting. GI:. : No signs and/or symptoms were reported regarding the genitourinary system. EENT: No signs and/or symptoms were reported regarding the EENT system. Derm: No signs and/or symptoms reported regarding the dermatologic system. Musculoskeletal: No signs and/or symptoms reported regarding the musculoskeletal system. Vital Signs: 18:50 BP 157 / 79; Pulse 69; Resp 16; Temp 98.1(O); Pulse Ox 93% on R/A; Weight 90.72 kg; cm10 Height 5 ft. 6 in. ; Pain 7/10; 21:07 BP 128 / 75; Pulse 65; Resp 16; Pulse Ox 100% ; Pain 7/10; tl4 22:08 BP 118 / 67; Pulse 57; Resp 18; Temp 97.8(O); Pulse Ox 99% on R/A; tl4 18:50 Body Mass Index 32.28 (90.72 kg, 167.64 cm) cm10 18:50 Pain Scale: Adult cm10 21:07 Pain Scale: Adult tl4 ED Course: 18:35 Patient arrived in ED. mg5 18:47 Noe Gaspar PA is PHCP. cp 18:47 Noe Marroquin MD is Attending Physician. cp 18:51 Triage completed. cm10 18:52 Arm band placed on right wrist. Patient placed in waiting room. cm10 20:02 CT Stone Protocol In Process Unspecified. EDMS 21:05 Eduardo Hernandez, RN is Primary Nurse. tl4 21:08 Patient has correct armband on for positive identification. Bed in low position. Call tl4 light in reach. Side rails up X 1. Provided Education on: call unger, ed process. Client placed on continuous cardiac and pulse oximetry monitoring. NIBP monitoring applied. Door closed. Noise minimized. Warm blanket given. 21:09 No provider procedures requiring assistance completed. Initial lab(s) drawn, by ia, tl4 sent to lab. Urine collected: clean catch specimen. Inserted saline lock: 22 gauge in right antecubital area, using aseptic technique. Blood collected. Flushed with 10 mL NS. 21:10 CMP Sent. tl4 21:10 Lipase Sent. tl4 21:55 IV discontinued, intact, bleeding controlled, No redness/swelling at site. Pressure tl4 dressing applied. Administered Medications: 21:10 Drug: TORadol - Ketorolac IVP 15 mg IVP once Route: IVP; Site: right antecubital; tl4 21:54 Follow up: Response: No adverse reaction; Pain is decreased tl4 21:10 Drug: Ondansetron IVP 4 mg IVP once; over 2 minutes Route: IVP; Site: right antecubital;tl4 21:55 Follow up: Response: No adverse reaction; Nausea is decreased tl4 21:10 Drug: NS 0.9% IV 1000 ml IV at 1 bolus Per protocol; to be given as a bolus over 60 tl4 minutes Route: IV; Rate: 1 bolus; Site: right antecubital; Delivery: Primary tubing; 21:55 Follow up: Response: No adverse reaction; IV Status: Completed infusion; IV Intake: tl4 1000ml Medication: 21:08 VIS not applicable for this client. tl4 Intake: 21:55 IV: 1000ml; Total: 1000ml. tl4 Outcome: 21:32 Discharge ordered by . cp 21:56 Discharged to home ambulatory, tl4 21:56 Condition: stable 21:56 Discharge instructions given to patient, Instructed on discharge instructions, follow up and referral plans. medication usage, Demonstrated understanding of instructions, follow-up care, medications, Prescriptions given X 2, 22:09 Patient left the ED. tl4 Signatures: Dispatcher [employer] EDMS Noe Gaspar PA PA cp Martinez, Clarissa RN RN cm10 Leeann Spencer mg5 Eduardo Hernandez RN RN tl4
--- NOTE | 2024-02-24 21:32 | EDPHYS ---
Physician Documentation [facility] Name: Bonita Hernandez Age: 43 yrs Sex: Female : 1980 Arrival Date: 02/24/2024 Time: 18:31 Bed 10 Private MD: ED Physician Noe Marroquin HPI: 02/23 19:10 This 43 yrs old Female presents to ER via Ambulatory with complaints of Flank cp Pain. 19:10 The patient complains of pain in the right flank. The pain radiates to the right lower cp quadrant of abdomen. Onset: The symptoms/episode began/occurred yesterday. Associated signs and symptoms: Pertinent positives: nausea, Pertinent negatives: diarrhea, dysuria, fever, urinary frequency, hematuria, pain radiating to the lower extremities, vomiting. Severity of pain: in the emergency department the pain is unchanged despite home interventions. 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 - Infectious Disease History:: Denies. - Social history:: Smoking status: Patient reports the use of cigarette tobacco products, smokes one-half pack cigarettes per day. ROS: 19:15 Constitutional: Negative for body aches, chills, fever, poor PO intake, cp 19:15 Eyes: Negative for injury, pain, redness, and discharge, cp 19:15 ENT: Negative for drainage from ear(s), ear pain, sore throat, difficulty swallowing, difficulty handling secretions, 19:15 Cardiovascular: Negative for chest pain, palpitations, 19:15 Respiratory: Negative for cough, shortness of breath, wheezing, 19:15 Abdomen/GI: Positive for abdominal pain, nausea, Negative for vomiting, diarrhea, constipation, black/tarry stool, rectal bleeding, 19:15 Back: Positive for flank pain, on the right, 19:15 : Negative for urinary symptoms, 19:15 Neuro: Negative for altered mental status, dizziness, headache, numbness, weakness, 19:15 All other systems are negative, Exam: 19:20 Constitutional: The patient appears in no acute distress, alert, awake, non-toxic, well cp developed, well nourished, uncomfortable, 19:20 Head/Face: Normocephalic, atraumatic. cp 19:20 Eyes: Periorbital structures: appear normal, Conjunctiva: normal, no exudate, no injection, Sclera: no appreciated abnormality, Lids and lashes: appear normal, bilaterally, 19:20 ENT: External ear(s): are unremarkable, Nose: is normal, Mouth: Lips: moist, Oral mucosa: pink and intact, moist, Posterior pharynx: Airway: no evidence of obstruction, patent, 19:20 Chest/axilla: Inspection: normal, 19:20 Cardiovascular: Rate: normal, Rhythm: regular, 19:20 Respiratory: the patient does not display signs of respiratory distress, Respirations: normal, no use of accessory muscles, no retractions, labored breathing, is not present, Breath sounds: are clear throughout, no decreased breath sounds, no stridor, no wheezing, 19:20 Abdomen/GI: Inspection: abdomen appears normal, Bowel sounds: active, all quadrants, Palpation: soft, in all quadrants, mild abdominal tenderness, in the right lower quadrant, 19:20 Back: pain, that is mild, of the right low back, ROM is painful, with all movement, 19:20 Skin: no rash present. 19:20 Neuro: Orientation: to person, place \T\ time. Mentation: is normal, Motor: moves all fours, strength is normal, Sensation: is normal, Gait: is steady, at a normal pace, without difficulty, Vital Signs: 18:50 BP 157 / 79; Pulse 69; Resp 16; Temp 98.1(O); Pulse Ox 93% on R/A; Weight 90.72 kg; cm10 Height 5 ft. 6 in. ; Pain 7/10; 21:07 BP 128 / 75; Pulse 65; Resp 16; Pulse Ox 100% ; Pain 7/10; tl4 22:08 BP 118 / 67; Pulse 57; Resp 18; Temp 97.8(O); Pulse Ox 99% on R/A; tl4 18:50 Body Mass Index 32.28 (90.72 kg, 167.64 cm) cm10 18:50 Pain Scale: Adult cm10 21:07 Pain Scale: Adult tl4 MDM: 18:54 Medical Screening Exam initiated cp 20:00 Differential diagnosis: nephrolithiasis, pyelonephritis, UTI, colitis. 21:31 Data reviewed: vital signs, nurses notes, lab test result(s), radiologic studies, CT cp scan, and as a result, I will discharge patient. 21:31 I considered the following discharge prescriptions or medication management in the emergency department Medications were administered in the Emergency Department. See MAR. 21:31 Counseling: I had a detailed discussion with the patient and/or guardian regarding the historical points, exam findings, and any diagnostic results supporting the discharge/admit diagnosis, lab results, radiology results, to return to the emergency department if symptoms worsen or persist or if there are any questions or concerns that arise at home. Response to treatment: the patient's symptoms have mildly improved after treatment, and as a result, I will discharge patient. 02/23 19:05 Order name: CBC with Diff; Complete Time: 21:21 02/23 21:21 Interpretation: Reviewed. 02/23 19:05 Order name: CMP; Complete Time: 21:21 02/23 21:21 Interpretation: Normal except: AST 14. 02/23 19:05 Order name: Lipase; Complete Time: 21:21 02/23 19:05 Order name: Test, Urine; Complete Time: 21:21 02/23 19:05 Order name: Urinalysis w/ reflexes; Complete Time: 21:21 02/23 19:41 Order name: CT Stone Protocol; Complete Time: 20:56 02/23 20:57 Interpretation: Report reviewed. 02/23 19:06 Order name: IV Saline Lock; Complete Time: 21:10 02/23 19:06 Order name: Labs collected and sent; Complete Time: 21:10 Administered Medications: 21:10 Drug: TORadol - Ketorolac IVP 15 mg IVP once Route: IVP; Site: right antecubital; tl4 21:54 Follow up: Response: No adverse reaction; Pain is decreased tl4 21:10 Drug: Ondansetron IVP 4 mg IVP once; over 2 minutes Route: IVP; Site: right antecubital;tl4 21:55 Follow up: Response: No adverse reaction; Nausea is decreased tl4 21:10 Drug: NS 0.9% IV 1000 ml IV at 1 bolus Per protocol; to be given as a bolus over 60 tl4 minutes Route: IV; Rate: 1 bolus; Site: right antecubital; Delivery: Primary tubing; 21:55 Follow up: Response: No adverse reaction; IV Status: Completed infusion; IV Intake: tl4 1000ml Disposition Summary: 02/24/24 21:32 Discharge Ordered Notes: Location: Home cp Problem: new cp Symptoms: have improved cp Condition: Stable cp Diagnosis - Strain of muscle and tendon of unspecified wall of thorax, initial encounter cp Followup: cp - With: Private Physician - When: 2 - 3 days - Reason: Recheck today's complaints Discharge Instructions: - Discharge Summary Sheet cp - Muscle Strain cp - Musculoskeletal Pain cp Forms: - Work release form cp - Medication Reconciliation Form cp - Antibiotic Education cp - Prescription Opioid Use cp - Patient Portal Instructions cp - Leadership Thank You Letter cp Prescriptions: - Anaprox DS 550 mg Oral Tablet - take 1 tablet ORAL route every 12 hours As needed; 20 tablet; Refills: 0, cp Product Selection Permitted - methocarbamol 750 mg Oral tablet - take 1 tablet ORAL route 3 times per day; 30 tablet; Refills: 0, Product cp Selection Permitted Signatures: Dispatcher [employer] EDDE Noe Gaspar PA PA cp Martinez, Clarissa RN RN cm10 Eduardo Hernandez RN RN tl4 Corrections: (The following items were deleted from the chart) 19:06 19:06 CBC+H.LAB.BRZ ordered. EDDE EDDE 19:06 19:06 COMPREHENSIVE METABOLIC PANEL+C.LAB.BRZ ordered. EDDE EDDE 19:06 19:06 LIPASE+C.LAB.BRZ ordered. EDDE EDDE 19:06 19:06 Test, Urine+UC.LAB.BRZ ordered. EDDE EDDE 19:06 19:06 Urinalysis+U.LAB.BRZ ordered. [facility] 02/24 15:02/23 19:10 Onset: The symptoms/episode began/occurred 2 day(s) ago, cp cp 02/24 15:14 02/23 19:10 Associated signs and symptoms: Pertinent negatives: diarrhea, dysuria, cp fever, urinary frequency, hematuria, pain radiating to the lower extremities, vomiting, cp
[2024-02-24 22:48] VITALS: BP 118/67; TEMP 97.8; O2SAT 99
== END 2024-02-24 22:09 | disposition home or self-care (01) ==
LOC: ER 18:31
DX: S29.019A Strain of muscle and tendon of unspecified wall of thorax, initial encounter (principal); F17.210 Nicotine dependence, cigarettes, uncomplicated
CPT/HCPCS: 36415; 74176; 76377; 80053; 81003; 81025; 83690; 85025; 96361; 96374; 96375; 99284; J2405; J7030